=== PATIENT | male | born 2000 | race Two or more races ===

== ENCOUNTER 2024-03-19 20:00 | Emergency (ER) | payer MEDICAID, SELFPAY ==
[2024-03-19 20:16] VITALS: BP 107/79; PULSE 87; RESP 18; TEMP 36.7; O2SAT 97
--- NOTE | 2024-03-19 20:29 | XR_ITS ---
Examination: Hand, right 3 views Technique: Hand AP, oblique, lateral 3 views Date and time of exam: March 19, 20242030 hrs. Indications: Laceration to the hand, fourth digit today Findings: No acute fracture No dislocation No foreign body Impression: Negative for foreign body
--- NOTE | 2024-03-19 20:30 | PD.EDRME ---
Rapid Medical Screening Exam RME Arrival date/time: 03/19/24 20:00 23-year-old male presents emergency department complaint of laceration to right hand from metal sheet. Patient unknown is up-to-date with tetanus vaccine. Chief Complaint: Wound/Laceration Time Seen by Provider: 03/19/24 20:26 Vital signs: Vital Signs Temperature 98.1 F 03/19/24 20:16 Pulse Rate 87 03/19/24 20:16 Respiratory Rate 18 03/19/24 20:16 Blood Pressure 107/79 03/19/24 20:16 Pulse Oximetry (%) 97 03/19/24 20:16 Oxygen Delivery Method Room Air 03/19/24 20:16 Vital signs reviewed by provider: Yes
--- NOTE | 2024-03-19 21:42 | EDNOTE_ITS ---
ED Wound/Laceration-RME/HPI General Chief Complaint: Wound/Laceration Stated Complaint: LACERATION TO RIGHT FINGER Time Seen by Provider: 03/19/24 20:26 Source: patient Arrival date/time: 03/19/24 20:00 23-year-old male presents emergency department complaint of laceration to right hand from metal sheet. Patient unknown is up-to-date with tetanus vaccine. Patient denies any other associated symptoms. Mode of arrival: ambulatory Limitations: no limitations RME / HPI RME / HPI narrative: 03/19/24 20:00 23-year-old male presents emergency department complaint of laceration to right hand from metal sheet. Patient unknown is up-to-date with tetanus vaccine. Related Data Previous Rx's ?Medication ?Instructions ?Recorded cephalexin 500 mg capsule (Keflex) 500 mg PO BID #20 caps 07/02/19 ibuprofen 800 mg tablet 800 mg PO Q6H PRN pain #30 tabs 07/02/19 Allergies Allergy/AdvReac Type Severity Reaction Status Date / Time No Known Allergies Allergy Verified 03/19/24 20:05 Review of Systems Review of Systems Systems Reviewed: All systems reviewed, normal except as documented Constitutional Constitutional: Reports system reviewed and no additional complaints, except as documented, Denies body ache(s), Denies chills and Denies fever(s) Eyes Eyes: Reports system reviewed and no additional complaints, except as documented and Denies change in vision ENT Ears, Nose, Mouth, and Throat: Reports system reviewed and no additional complaints, except as documented, Denies disequilibrium, Denies dizziness, Denies sore throat and Denies vertigo Cardiovascular Cardiovascular: Reports system reviewed and no additional complaints, except as documented, Denies chest pain and Denies dyspnea Respiratory Respiratory: Reports system reviewed and no additional complaints, except as documented, Denies chest congestion, Denies cough and Denies dyspnea Gastrointestinal Gastrointestinal: Reports system reviewed and no additional complaints, except as documented, Denies abdominal pain, Denies nausea and Denies vomiting Musculoskeletal Musculoskeletal: Reports system reviewed and no additional complaints, except as documented, Denies abnormal gait and Denies arthralgias Integumentary/Breasts Skin/Breast: Reports system reviewed and no additional complaints, except as documented, Denies erythema, Denies rash and Reports wounds Neurologic Neurologic: Reports system reviewed and no additional complaints, except as documented, Denies abnormal gait, Denies disequilibrium, Denies dizziness and Denies vertigo Past Medical History Social History SMOKING STATUS: Never smoker ED Exam General Limitations: Present no limitations General appearance: Present alert and in no apparent distress Head Head exam: Present atraumatic Eye Eye exam: Present normal appearance, PERRL and EOMI ENT ENT exam: Present normal exam, normal oropharynx and mucous membranes moist Neck Neck exam: Present normal inspection, full ROM and trachea midline Chest Chest inspection: Present normal inspection and symmetric chest wall rise Respiratory Respiratory exam: Present normal lung sounds bilaterally Cardiovascular Cardiovascular exam: Present regular rate, normal rhythm and normal heart sounds Abdominal Exam Abdominal exam: Present soft and normal bowel sounds Extremities Exam Extremities exam: Present normal inspection and full ROM Expanded Upper Extremity Exam Hand L/R back image: 2 1. Small laceration no tendon involvement Vascular exam: Normal capillary refill Back Exam Back exam: Present normal inspection and full ROM Neurological Exam Neurological exam: Present alert, oriented X3 and CN II-XII intact Psychiatric Psychiatric exam: Present normal affect and normal mood Skin Skin exam: Present warm, dry, intact and normal color Course Quality Measures none Orders Category Date Time Status Set Up Suture Tray STAT Care 03/19/24 20:30 Completed Wound Care [Wound Care] NOW Care 03/19/24 20:30 Completed XR hand comp RT min 3V Stat Exams 03/19/24 20:29 Completed Lidocaine 1% 20 ml [Xylocaine 1% 20 ML] Med 03/19/24 20:30 Discontinued 20 ml INFL X1 ONE Tet,Diphth,Pertuss(Acell)-Tdap [Boostrix Vacc] Med 03/19/24 20:30 Discontinued 0.5 ml IMI .ONCE ONE Vital Signs Vital signs: Vital Signs Temperature 98.1 F 03/19/24 20:16 Pulse Rate 87 03/19/24 20:16 Respiratory Rate 18 03/19/24 20:16 Blood Pressure 107/79 03/19/24 20:16 Pulse Oximetry (%) 97 03/19/24 20:16 Oxygen Delivery Method Room Air 03/19/24 20:16 97% room air within normal limits Procedures -ED Laceration Laceration 1: Site: hand Side (If applicable): right Size (cm): 2 Description: flap Depth: simple, single layer Local Anesthetic: lidocaine 1% Amount of anesthesia used (mL): 1 Pre-repair: wound explored and irrigated extensively Skin layer closed with: nylon Size (cm): 4-0 Number of sutures: 3 Technique: simple, interrupted Wound / Laceration MDM Narrative MDM Narrative:: 23-year-old male presents emergency department complaint of laceration to right hand from metal sheet. Patient unknown is up-to-date with tetanus vaccine. Patient denies any other associated symptoms. Wound cleansed with copious amounts of normal saline. Patient affected finger neurovascularly intact with full active range of motion. 1% lidocaine was used local anesthetic and laceration approximated using 4-0 Ethilon 3 simple interrupted sutures. Patient tolerated well. Dressing applied instructed to return to the emergency department or primary care provider's office in 7 to 10 days for suture removal. Instructed return to emergency department for any worsening symptoms or signs of infection. Patient data External records reviewed:: [facility] previous records Clinical information provided by:: patient Social determinants that could affect healthcare access:: none Patient has the following chronic illnesses:: None How is presenting disease/condition affected by chronic disease/condition?: no chronic disease Evaluation data The following diagnostics were reviewed and interpreted by me:: radiology exam(s) Lab and/or radiology exams considered but not ordered:: Ordered Interpretation Summary: Interpreted by me Medications / Prescriptions Medications or Prescriptions considered but not ordered:: Ordered Medication administrations:: Medication Administration History Discontinued Medications Diphtheria/Tetanus/Acell Pertussis (Diphth,Pertuss(Acell),Tet Vac 0.5 Ml Vial) 0.5 ml IMi .ONCE ONE Stop: 03/19/24 20:31 Last Admin: 03/19/24 21:59 Dose: 0.5 ml Documented By: SKIP Lidocaine HCl (Lidocaine Hcl 1% 20 Ml Vial) 20 ml INFL X1 ONE Stop: 03/19/24 20:31 Last Admin: 03/19/24 21:59 Dose: 20 ml Documented By: SKIP Given Consultations Consultation(s) initiated? (list below): No Diagnosis Wound Differential Diagnosis: laceration Most likely diagnosis given after review of the tests above:: Laceration of hand Admission Indicated Admission indicated?: not indicated Admission Request Was there a request for admission?: No Disposition Plan Disposition Plan: Discharge Discharge Attestation Discharge Attestation: The patient and all family members were given an opportunity to ask questions and understood the discharge instructions. Discharge instructions specifically effects, indications for sooner follow up or return to the emergency department, and the expected course of current diagnosis. Patient condition: Stable Discharge Plan Plan Patient Disposition: HOME (Self Care) Disposition Comment: Stable Prescriptions/Referrals Prescriptions/Med Rec: No Action cephalexin [Keflex] 500 mg capsule 500 mg PO BID Qty: 20 0RF ibuprofen 800 mg tablet 800 mg PO Q6H PRN (Reason: pain) Qty: 30 0RF Referrals: No Primary/Family,Physician [Primary Care Provider] - In 1 week Problem List Clinical Impression: Laceration of hand Patient/Caregiver Discharge Instructions Discharge Activity: activity as tolerated Education Materials: ED Laceration: All Closures Additional Instructions: Keep dressing on laceration for the first 24 hours to the stopped bleeding. May wash with warm water and soap. Keep open to air and dry. Return to emergency department or primary care provider in 7 to 10 days for suture removal. Return to emergency department for any worsening signs of infection or as needed. Print Language: Tajik Stand Alone Forms: Laya Award Info., Patient Portal Info Letter Vaccines Vaccines Given During Stay: TDaP PA/INSPECTOR MACHINE C[employer] GLASS Supervising Physician PA/INSPECTOR [employer]ACH[employer] Supervising Physician: Dr. Marroquin
[2024-03-19] MEDS: DIPHTH,PERTUSS(ACELL),TET VAC 0.5 ML VIAL IMi (21:59)
[2024-03-19] MEDS: LIDOCAINE HCL 1% 20 ML VIAL INFL (21:59)
== END 2024-03-19 22:06 | disposition home or self-care (01) ==
PROVIDERS: Emergency Provider Emergency Medicine
DX: S61.411A Laceration without foreign body of right hand, initial encounter (principal); W45.8XXA Other foreign body or object entering through skin, initial encounter; Z23 Encounter for immunization
CPT/HCPCS: 12001; 73130; 90471; 90715; 99283; J3490

== ENCOUNTER 2024-03-27 12:24 | Emergency (ER) | payer MEDICAID, SELFPAY ==
[2024-03-27 12:25] VITALS: BMI 27.4
[2024-03-27 13:18] VITALS: BP 136/83; PULSE 69; RESP 18; TEMP 36.9; O2SAT 97
--- NOTE | 2024-03-27 13:24 | PD.EDWOUND ---
ED Wound/Laceration-RME/HPI General Chief Complaint: Wound Recheck / Suture Removal Stated Complaint: NEEDS STITCHES REMOVED Time Seen by Provider: 03/27/24 12:27 Arrival date/time: 03/27/24 12:24 24-year-old male presents the emergency department today requesting suture removal patient had sutures placed right hand fourth digit on last visit Limitations: no limitations Related Data Previous Rx's ?Medication ?Instructions ?Recorded cephalexin 500 mg capsule (Keflex) 500 mg PO BID #20 caps 07/02/19 ibuprofen 800 mg tablet 800 mg PO Q6H PRN pain #30 tabs 07/02/19 Allergies Allergy/AdvReac Type Severity Reaction Status Date / Time No Known Allergies Allergy Verified 03/27/24 12:25 Review of Systems Review of Systems Systems Reviewed: All systems reviewed, normal except as documented Constitutional Constitutional: Reports system reviewed and no additional complaints, except as documented, Denies fever(s) and Denies headache(s) Eyes Eyes: Reports system reviewed and no additional complaints, except as documented and Denies blurry vision ENT Ears, Nose, Mouth, and Throat: Reports system reviewed and no additional complaints, except as documented, Denies headache(s), Denies nasal congestion and Denies nasal discharge Cardiovascular Cardiovascular: Reports system reviewed and no additional complaints, except as documented, Denies chest pain and Denies dyspnea Respiratory Respiratory: Reports system reviewed and no additional complaints, except as documented, Denies chest congestion, Denies cough and Denies dyspnea Gastrointestinal Gastrointestinal: Reports system reviewed and no additional complaints, except as documented and Denies abdominal pain Integumentary/Breasts Skin/Breast: Reports system reviewed and no additional complaints, except as documented, Denies rash and Reports wounds (Sutures in place right hand fourth digit) Neurologic Neurologic: Reports system reviewed and no additional complaints, except as documented, Reports as per HPI and Denies headache(s) Past Medical History Past Medical History NEUROLOGIC: Negative Neurological Disorders ED Exam General Limitations: Present no limitations General appearance: Present alert and in no apparent distress Head Head exam: Present atraumatic Eye Eye exam: Present normal appearance, PERRL and EOMI ENT ENT exam: Present normal exam, normal oropharynx and mucous membranes moist Neck Neck exam: Present normal inspection, full ROM and trachea midline Chest Chest inspection: Present normal inspection and symmetric chest wall rise Respiratory Respiratory exam: Present normal lung sounds bilaterally Cardiovascular Cardiovascular exam: Present regular rate, normal rhythm and normal heart sounds Abdominal Exam Abdominal exam: Present soft and normal bowel sounds Extremities Exam Extremities exam: Present full ROM, tenderness, normal capillary refill and other (Sutures in place right hand fourth) Back Exam Back exam: Present normal inspection and full ROM Neurological Exam Neurological exam: Present alert, oriented X3 and CN II-XII intact Psychiatric Psychiatric exam: Present normal affect and normal mood Skin Skin exam: Present warm, dry and other (Sutures in place right hand fourth) Course Quality Measures none Vital Signs Vital signs: Vital Signs Temperature 98.5 F 03/27/24 13:18 Pulse Rate 69 03/27/24 13:18 Respiratory Rate 18 03/27/24 13:18 Blood Pressure 136/83 H 03/27/24 13:18 Pulse Oximetry (%) 97 03/27/24 13:18 Oxygen Delivery Method Room Air 03/27/24 13:18 O2 saturation 97% room air with normal limits Wound / Laceration MDM Narrative MDM Narrative:: 24-year-old male presents the emergency department today requesting suture removal patient had sutures placed right hand fourth digit on last visit Sutures removed in their entirety wound is well-approximated no active bleeding and no evidence of infection Patient discharged home in no distress to follow-up with primary care doctor in the next 24 to 48 hours and for any worsening symptoms to return to the ER immediately Patient data External records reviewed:: [facility] previous records Clinical information provided by:: patient Social determinants that could affect healthcare access:: none Patient has the following chronic illnesses:: none How is presenting disease/condition affected by chronic disease/condition?: no chronic disease Evaluation data The following diagnostics were reviewed and interpreted by me:: other (specify) (N/A) Lab and/or radiology exams considered but not ordered:: Consider not ordered Interpretation Summary: N/A Medications / Prescriptions Medications or Prescriptions considered but not ordered:: Given Medication administrations:: Given Consultations Consultation(s) initiated? (list below): No Diagnosis Wound Differential Diagnosis: laceration, abrasion and avulsion of skin Most likely diagnosis given after review of the tests above:: Encounter for suture removal Admission Indicated Admission indicated?: not indicated Admission Request Was there a request for admission?: No Disposition Plan Disposition Plan: Discharge Discharge Attestation Discharge Attestation: The patient and all family members were given an opportunity to ask questions and understood the discharge instructions. Discharge instructions specifically effects, indications for sooner follow up or return to the emergency department, and the expected course of current diagnosis. Patient condition: Stable Discharge Plan Plan Patient Disposition: HOME (Self Care) Disposition Comment: Stable Prescriptions/Referrals Prescriptions/Med Rec: No Action cephalexin [Keflex] 500 mg capsule 500 mg PO BID Qty: 20 0RF ibuprofen 800 mg tablet 800 mg PO Q6H PRN (Reason: pain) Qty: 30 0RF Problem List Clinical Impression: Visit for suture removal Patient/Caregiver Discharge Instructions Education Materials: ED Stitches/Staple Removal No ... Additional Instructions: Please follow up with your primary care doctor in the next 24-48hrs for any worsening symptoms return here immediately Print Language: Bulgarian Stand Alone Forms: Laya Award Info., Patient Portal Info Letter PA/MUSEUM EXHIBIT TECHNICIAN Supervising Physician PA/MUSEUM EXHIBIT TECHNICIAN Supervising Physician: Dr. [email or web address]
== END 2024-03-27 14:06 | disposition home or self-care (01) ==
PROVIDERS: Emergency Provider Emergency Medicine
DX: S61.214D Laceration without foreign body of right ring finger without damage to nail, subsequent encounter (principal); W45.8XXD Other foreign body or object entering through skin, subsequent encounter
CPT/HCPCS: 99282